=== PATIENT | male | born 1950 | race Caucasian/White ===

== ENCOUNTER → 2024-10-24 | Outpatient (BNVA) | payer MEDICARE, OTHER, SELFPAY | END | disposition home or self-care (01) | PROVIDERS: PCP Family Medicine; Referring Provider Family Medicine; Visit Provider Physician Assistant | DX: C61 Malignant neoplasm of prostate (principal); N39.3 Stress incontinence (female) (male) | CPT/HCPCS: Q3014 ==

== ENCOUNTER → 2025-05-08 | Outpatient (BNVA) | payer MEDICARE, OTHER, SELFPAY ==
--- NOTE | 2025-05-08 13:03 | ESPR_ITS ---
RE: BRYANNA RENNER : 1950 DATE OF SERVICE: 05/08/2025 CHIEF COMPLAINT: Prostate cancer status post robotic radical prostatectomy and bilateral pelvic lymph node dissections done by Dr. Solano at [facility] on 01/26/2023. COMORBID CONDITIONS: 1. Diabetes mellitus. 2. Hypertension. HISTORY OF PRESENT ILLNESS: This is a 74-year-old gentleman. This patient was diagnosed with prostate cancer, underwent above procedure at [facility] done by Dr. Solano. The patient has done very well. He has no fever, chills, gross hematuria, dysuria, urinary tract infection. The patient has stress urinary incontinence, grade 1 and uses one pad on a p.r.n. basis and he is doing Kegel exercises. He has improved and that is not an issue with him anymore. Erection is not an issue with the patient/ at this time. Pathology report from [facility] is reviewed by me. This revealed: 1. Histological type acinar adenocarcinoma. 2. Histology grade, grade group 2, Guadalupe score is 3+4 equal to 7. 3. Intraductal carcinoma not identified. 4. Cribriform gland not identified. 5. Extra-prostate extension not identified. 6. Urinary bladder neck invasion not identified. 7. Lymphovascular invasion not identified. 8. All margins negative for invasive carcinoma 9. All regional lymph node negative for any metastatic disease. 10. Distance metastasis not applicable. Pathological stage of cancer is pT2 organ confined, pN0. Past medical history, family history, review of the system, personal history: Please refer to the patient history form dated 05/08/2025. It is in the HPI, in EMR. PHYSICAL EXAMINATION: General: Condition is satisfactory, orientation x3. HEENT: Normocephalic and atraumatic. Eyes: No anemia or jaundice. Neck: Supple, trachea is central. Thyroid is not enlarged. Extremities: Revealed no edema, cyanosis, or clubbing. Vital signs: Stable. They are in HPI, in EMR. Chest: Symmetrical. Heart: Regular rate and rhythm. Abdomen: Obese. No masses. Liver, spleen, and kidney not palpable. No CVA tenderness. There is no incisional hernia. VARIOUS LABS: Urine is negative for any infection or microscopic hematuria. PSA on 05/01/2025 is less than 0.04. PLAN: 1. Kegel exercise to continue. 2. PSA in one year. Reappointment in one year or p.r.n. DT: 11:47:13 TT: 13:01:00 Ref: [id number] - TID: [id number]
== END | disposition home or self-care (01) ==
PROVIDERS: PCP Family Medicine; Referring Provider Family Medicine; Visit Provider Urology
DX: C61 Malignant neoplasm of prostate (principal); E11.9 Type 2 diabetes mellitus without complications; I10 Essential (primary) hypertension; N39.3 Stress incontinence (female) (male); E66.9 Obesity, unspecified; Z68.28 Body mass index [BMI] 28.0-28.9, adult
CPT/HCPCS: 81003; 99212; G0463